=== PATIENT | male | born 1960 | race Caucasian/White ===

== ENCOUNTER 2017-12-17 20:59 | Emergency (ER) | payer BC ==
[~2017-12-17] VITALS: Ht 167.6 cm; Wt 85.0 kg
[2017-12-17 21:05] VITALS: TEMP 36.6; Ht 167.6 cm; Wt 85.0 kg
[2017-12-17] MEDS ORDERED: ALBUT/IPRATROP 3MG/0.5MG NEB 3 ML VIAL INH STA (21:30)
[2017-12-17] MEDS ORDERED: DEXAMETHASONE **PF** INJ 10 MG/ML VIAL IV ONE (21:30)
[2017-12-17 21:49] VITALS: O2SAT 93
[2017-12-17 22:20] LABS: BASO % 0.2 %; BASO ABS # 0.03 K/uL (0-0.2); EOS % 8.8 %; EOS ABS # 1.06 K/uL (0-0.5); HEMATOCRIT 40.7 % (42-52); IG# 0.06 K/uL (0.00-0.02); LYMPH % 21.2 %; LYMPH ABS # 2.56 K/uL (1.2-3.4); MEAN CORPUSCULAR HEMOGLOBIN 29.2 pg (25-34); MEAN CORPUSCULAR HGB CONC 34.4 g/dl (32-36); MEAN PLATELET VOLUME 9.6 fL (7.4-10.4); MONO % 8.3 %; NEUT ABS # 7.39 K/uL (1.4-6.5); PLATELET COUNT 274 K/uL (130-400); RED CELL DISTRIBUTION WIDTH CV 13.4 % (11.5-14.5); RED CELL DISTRIBUTION WIDTH SD 41.4 fL (36.4-46.3)
[2017-12-17 22:37] LABS: ALBUMIN 3.5 gm/dl (3.4-5.0); AST/SGOT 19 U/L (15-37); BLOOD UREA NITROGEN 15 mg/dl (7-18); CALCIUM 8.4 mg/dl (8.5-10.1); CARBON DIOXIDE 28 mmol/L (21-32); CREATININE 0.89 mg/dl (0.60-1.40); GLUCOSE 98 mg/dl (70-99); POTASSIUM 3.9 mmol/L (3.5-5.1); SODIUM 140 mmol/L (136-145)
[2017-12-17 22:40] LABS: ALKALINE PHOSPHATASE 74 U/L (45-117); ALT/SGPT 40 U/L (12-78); TOTAL PROTEIN 7.3 gm/dl (6.4-8.2)
--- NOTE | 2017-12-17 22:54 | DIAGNOSTIC IMAGING REPORT ---
CHEST ONE VIEW PORTABLE HISTORY: 57 years-old Male CHEST PAIN acute atypical chest pain COMPARISON: None available TECHNIQUE: Portable AP view of the chest FINDINGS: Cardiomediastinal and hilar silhouettes are within normal limits. There is no pneumothorax, pleural effusion, focal airspace consolidation or overt pulmonary edema. Degenerative changes of the shoulders and spine. IMPRESSION: No acute process. The above report was generated using voice recognition software. It may contain grammatical, syntax or spelling errors. Electronically signed by: Cesar Patel M.D. 12/17/2017 10:52 PM Dictated Date/Time: 12/17/2017 10:52 PM
[2017-12-17] MEDS ORDERED: OPTIRAY 320 IV PRN (23:30)
[2017-12-18] MEDS ORDERED: ALBUT/IPRATROP 3MG/0.5MG NEB 3 ML VIAL INH STA (00:22)
[2017-12-18] MEDS ORDERED: ALBINS/ INH (00:38)
[2017-12-18] MEDS ORDERED: PRED50TA PO (00:38)
--- NOTE | 2017-12-18 00:39 | EMERGENCY ROOM VISIT NOTE ---
History First contact with patient: 21:22 Chief Complaint: RESPIRATORY PROBLEMS Stated Complaint: RESPIRATORY ISSUES,HAVING TROUBLE BREATHING History of Present Illness The patient is a 57 year old male who presents to the Emergency Room with complaints of cough, congestion, wheezing, shortness of breath and chest pain for the past week who has had problems with breathing for the past several months. 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 They did not do an x-ray. Patient states this week he seen his family care doctor twice. He has been on steroids and a Z-Gavin. Patient denies fevers, productive cough, abdominal pain, leg pain or swelling, tobacco abuse, recent travel, night sweats, weight loss, history of DVT or PE or heart disease. No family history of blood clots or heart disease. 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 Review of Systems An 10 system review of systems was completed with positives and pertinent negatives listed in the HPI. Past Medical/Surgical History Asthma Social History Smoking Status: Never Smoker Alcohol Use: occasionally Drug Use: none Marital Status: Housing Status: lives with family Occupation Status: employed Current/Historical Medications No Active Prescriptions or Reported Meds Physical Exam Vital Signs Date Time Temp Pulse Resp B/P (MAP) Pulse Ox O2 Delivery O2 Flow Rate FiO2 12/17/17 23:19 66 24 131/80 93 Room Air 12/17/17 22:53 67 20 92 Room Air 12/17/17 22:44 65 12/17/17 22:01 62 12/17/17 21:49 93 Room Air 12/17/17 21:49 93 Room Air 12/17/17 21:05 36.6 69 20 155/84 93 Room Air Physical Exam PHYSICAL EXAM: Vital Signs: Reviewed Nurse's notes. Oxygen saturation was 93% on room air. GENERAL: Pleasant male, Alert, oriented and coherent. The patient is able to speak in complete sentences. NECK: Supple, non-tender. CHEST: Symmetrical expansion. no retractions no accessory muscle use. HEART: Regular rate and normal heart sounds, no murmur, gallop or rub. LUNGS: Breath sounds equal but significantly diminished in intensity on both sides. Bilateral wheezes heard but no rales or pleuritic rub. SKIN: The skin was without rashes, erythema, edema, or bruising. There is no tenting of the skin. Capillary reflex less than 2 seconds. HEAD: Normocephalic atraumatic. EARS: External auditory canals clear, tympanic membranes pearly gates without erythema or effusion bilaterally. EYES: Pupils equal round and reactive to light and accommodation. Conjunctivae without injection, sclerae without icterus. Extraocular movements intact. NOSE: Patent, turbinates without inflammation or discharge. No sinus tenderness. MOUTH: Mucous membranes moist. Pharynx without erythema or exudate. Uvula midline. Airway patent. Tongue does not deviate. ABDOMEN: Positive bowel sounds x 4. Normal tympanic percussion. Soft, nontender, without masses or organomegaly. House sign negative. No guarding or rebound tenderness. MUSCULOSKELETAL: No muscle atrophy, erythema, or edema noted. NEURO: Patient was alert and oriented to person place and time. Normal sensation to light and sharp touch. No focal neurological deficits. Medical Decision & Procedures Laboratory Results 12/17/17 21:15 Red Blood Count 4.79, Mean Corpuscular Volume 85.0, Mean Corpuscular Hemoglobin 29.2, Mean Corpuscular Hemoglobin Concent 34.4, Mean Platelet Volume 9.6, Neutrophils (%) (Auto) 61.0, Lymphocytes (%) (Auto) 21.2, Monocytes (%) (Auto) 8.3, Eosinophils (%) (Auto) 8.8, Basophils (%) (Auto) 0.2, Neutrophils # (Auto) 7.39, Lymphocytes # (Auto) 2.56, Monocytes # (Auto) 1.00, Eosinophils # (Auto) 1.06, Basophils # (Auto) 0.03 12/17/17 21:15 Test 12/17/17 21:15 12/17/17 21:39 White Blood Count 12.10 K/uL (4.8-10.8) Red Blood Count 4.79 M/uL (4.7-6.1) Hemoglobin 14.0 g/dL (14.0-18.0) Hematocrit 40.7 % (42-52) Mean Corpuscular Volume 85.0 fL (80-100) Mean Corpuscular Hemoglobin 29.2 pg (25-34) Mean Corpuscular Hemoglobin Concent 34.4 g/dl (32-36) Platelet Count 274 K/uL (130-400) Mean Platelet Volume 9.6 fL (7.4-10.4) Neutrophils (%) (Auto) 61.0 % Lymphocytes (%) (Auto) 21.2 % Monocytes (%) (Auto) 8.3 % Eosinophils (%) (Auto) 8.8 % Basophils (%) (Auto) 0.2 % Neutrophils # (Auto) 7.39 K/uL (1.4-6.5) Lymphocytes # (Auto) 2.56 K/uL (1.2-3.4) Monocytes # (Auto) 1.00 K/uL (0.11-0.59) Eosinophils # (Auto) 1.06 K/uL (0-0.5) Basophils # (Auto) 0.03 K/uL (0-0.2) RDW Standard Deviation 41.4 fL (36.4-46.3) RDW Coefficient of Variation 13.4 % (11.5-14.5) Immature Granulocyte % (Auto) 0.5 % Immature Granulocyte # (Auto) 0.06 K/uL (0.00-0.02) D-Dimer 490 ug/L FEU (0-500) Anion Gap 5.0 mmol/L (3-11) Est Creatinine Clear Calc Drug Dose 92.5 ml/min Estimated GFR () 109.2 Estimated GFR (Non- 94.3 BUN/Creatinine Ratio 16.3 (10-20) Calcium Level 8.4 mg/dl (8.5-10.1) Magnesium Level 2.0 mg/dl (1.8-2.4) Total Bilirubin 0.4 mg/dl (0.2-1) Direct Bilirubin < 0.1 mg/dl (0-0.2) Aspartate Amino Transf (AST/SGOT) 19 U/L (15-37) Alanine Aminotransferase (ALT/SGPT) 40 U/L (12-78) Alkaline Phosphatase 74 U/L (45-117) Troponin I < 0.015 ng/ml (0-0.045) Total Protein 7.3 gm/dl (6.4-8.2) Albumin 3.5 gm/dl (3.4-5.0) Thyroid Stimulating Hormone (TSH) 4.650 uIu/ml (0.300-4.500) Bedside Troponin I < 0.030 ng/ml (0-0.045) Medications Administered Medications (Trade) Dose Ordered Sig/Deirdre Route Start Time Stop Time Status Last Admin Dose Admin Dexamethasone Sodium Phosphate (Dexamethasone Inj Pf) 10 mg NOW ONCE IV 12/17/17 21:30 12/17/17 21:33 DC 12/17/17 21:48 10 MG Albuterol/ Ipratropium (Duoneb) 3 ml NOW STAT INH 12/17/17 21:30 12/17/17 21:33 DC 12/17/17 21:48 3 ML ED Course Prior records/ancillary studies reviewed. Triage Nursing notes reviewed. Additional history obtained from the family. The patient's history was concerning for respiratory difficulties. Differential diagnosis: Etiologies such as infections, reactive airway disease, pneumonia, pneumothorax , COPD, CHF, cardiac ischemia, pulmonary embolism, musculoskeletal, gastrointestinal, as well as others were entertained. Physical examination: As above. ER treatment provided: Nebulizer, Decadron On reassessment the patient felt better. Diagnostic interpretation by me: The electrocardiogram was negative for acute ischemic. Low voltage, no acute ST -T wave changes, rate of 62. Impression normal sinus rhythm with low voltage interpreted by myself. The labs revealed negative troponin. Stable H&H. Imaging studies: Chest x-ray as above. CTA CHEST: No pulmonary embolus identified. No aortic aneurysm or dissection. No acute pulmonary parenchymal abnormality identified. Question mild bronchial wall thickening which may represent bronchitis. Nonspecific mildly prominent mediastinal and hilar lymph nodes. Cystic structure along the posterior right hepatic lobe is only partially visualized on this exam. This may be represent a renal cyst or hepatic cyst. Radiologist: Clarisse Krishna M.D. HEART SCORE: Hx: high/mod/low suspicion: 0 ECG: ST depression/nonspecific changes/normal: 0 Age: Greater than 65/45-64/less than 45: 1 Risk factors: (Hypertension, hyperlipidemia, diabetes, coronary disease, tobacco use, cocaine use): 0 Troponin: Greater than 2 times normal limits/1-2 times normal limits/normal: 0 Total: 1 Wells Score Symptoms of DVT 3pt: 0 Alternative diagnoses better explains illness 3pts: 0 Tachycardia greater than 100 1.5 pts 0 Immobilization greater than 3 days or surgery in the previous 4 weeks 1.5 pts: 0 Prior history of DVT or PE 1.5 pts: 0 Presence of hemoptysis 1pt: 0 Presence of malignancy 1pt: 0 (Score greater than 6 is high probability, score 2-6 moderate probability, score less than 2 low probability) Total: 0 This appears to be consistent with bronchitis with wheezing. Patient has been seen multiple times this past 2 weeks with worsening symptoms. Imaging was ordered for his ongoing breathing problems that she has bronchitis with reactive lymph nodes. Patient was recently diagnosed with reactive airway disease. He has already been on steroids and antibiotics. He has not seen a dairy chemist. Case management will help facilitate follow-up pulmonology for his ongoing worsening breathing problems. Patient states he might of had a distant history of TB but is unsure. He was treated for TB and 83. He states he had a positive PPD but is unsure. He was in the them. His heart score was low. He had low voltage on EKG without acute changes for cardiac ischemia. His pulse ox was stable. By the evaluation outlined above emergent etiologies such as CHF, cardiac ischemia, pulmonary embolism, pneumonia, pneumothorax, musculoskeletal, serious bacterial infections, as well as others were deemed relatively unlikely. Patient was not hypoxic. He had great improvement after being medicated as above. He asked about a nebulizer and was informed to see his family care doctor for prescription for a nebulizer. The pt informed about the findings as listed above. All questions were answered and pleased with the treatment. Return instructions were outlined and the patient was discharged in stable condition. Outpatient prescription management: prednisone Referral: The patient was referred back to their primary care physician for follow-up in 2 to 3 days for a recheck of the current condition. Case reviewed with my attending The chart was completed utilizing [employer] Speech voice recognition software. Grammatical errors, random word insertions, pronoun errors, and incomplete sentences are an occassional consequence of this system due to software limitations, ambient noise, and hardware issues. Any formal questions or concerns about the content, text, or information contained within the body of this dictation should be directly addressed to the physician assistant executive housekeeper for clarification. Medical Decision As above Medication Reconcilliation Current Medication List: was personally reviewed by me Blood Pressure Screening Patient's blood pressure: Normal blood pressure Impression Primary Impression: Wheezy bronchitis Departure Information Dispostion Home / Self-Care Condition GOOD Prescriptions Prednisone (Prednisone) 50 Mg Tab 50 MG PO DAILY for 4 Days, #4 TAB Prov: Christa Chapman .ZEINAB 12/18/17 Albuterol Sulf (PROVENTIL 0.083% 2.5MG/3ML) 2.5 Mg/3 Ml Nebu 2.5 MG INH QID, #100 EA Prov: Christa Chapman .ZEINAB 12/18/17 Referrals Nelia Dickey M.D. (MEDICAL) (PCP) Patient Instructions My [facility] Additional Instructions Albuterol Inhaler: Take 2 puffs four times daily for five days, then as needed. Or Albuterol nebulizer every 4 hours as needed. Prednisone 50mg: Once daily until the prescription is finished. It is best to take this earlier in the day as some patients note occasional difficulty falling asleep when taken in the late evening. Acetaminophen(Tylenol) may be used for fever or pain. Use 1000mg every six hours as needed. Avoid using more than 3000mg in a 24 hour period. (AND/OR) Ibuprofen(Motrin, Advil) may be used for fever or pain. Use 600mg every six hours as needed. Take with food. Avoid using more than 2400mg in a 24 hour period. Do not use 2400mg per day for more than three consecutive days without physician direction. Prolonged inappropriate use can lead to stomach upset or ulcers. Rest and drink plenty of fluids. Avoid smoke/smoking, fumes, dust, or any triggers in the past that may have affected your breathing. Continue current medications. Return to the ER for chest pain, difficulty breathing, fevers, vomiting, worsening of your condition, or as needed. Follow up with your primary physician this week for a recheck of your current condition. Case management will help facilitate follow-up pulmonology next week. If you do not hear by case management by noon on Wednesday, then call the ER and asked to speak with case management.
[2017-12-18 00:56] VITALS: BP 133/72; PULSE 65; O2SAT 92
--- NOTE | 2017-12-18 05:31 | DIAGNOSTIC IMAGING REPORT ---
(CHEST FOR PE) ANGIO WITH CLINICAL HISTORY: 57 years-old Male presenting with ^CP/SOB, getting worse, hx poss TB in 1983. TECHNIQUE: Multidetector CT angiography of the chest was performed after administration of intravenous contrast. 3-D volumetric and/or maximum intensity projection (MIP) images were subsequently reconstructed for review. IV contrast: 94 mL of Optiray 320. A dose lowering technique was used consistent with the principles of ALARA (as low as reasonably achievable). COMPARISON: None. CT DOSE (mGy.cm): The estimated cumulative dose is 406.00 mGy.cm. FINDINGS: Web Content Developer topogram: Unremarkable. Pulmonary vasculature: The study is adequate for assessment of the pulmonary vascular tree. No filling defect within the pulmonary arteries to suggest embolus. Main pulmonary artery is not enlarged. No flattening of the interventricular septum. No intracardiac filling defect. Reflux of contrast into the intrahepatic IVC. Remaining chest: On soft tissue windows, normal thyroid and thoracic inlet. No axillary, supraclavicular, hilar, or mediastinal lymphadenopathy. Atherosclerosis of the aorta. Normal heart size. Coronary artery calcification. No pericardial or pleural effusion. Partially visualized low-density well-defined cystic-appearing structure along the posterior right hepatic lobe may represent hepatic or renal cyst. On lung windows, no focal infiltrate or nodule. Bronchial wall thickening evident with scattered subsegmental bronchial debris or mucus plugging. Central airways remain patent. On bone windows, normal osseous structures. IMPRESSION: 1. No evidence of pulmonary embolus. 2. Bronchial wall thickening and scattered subsegmental bronchial debris or mucus plugging could indicate bronchitis. No focal infiltrate to suggest pneumonia. Electronically signed by: Jose Chahal M.D. 12/18/2017 5:30 AM Dictated Date/Time: 12/18/2017 5:24 AM
== END 2017-12-18 00:56 | disposition home or self-care (01) ==
LOC: C.EDB 21:01
DX: J40 Bronchitis, not specified as acute or chronic (principal); R06.2 Wheezing

== ENCOUNTER → 2018-03-07 | Outpatient (CLI) | payer BC ==
[~2018-03-07] MED LIST: ALBINS/ INH; BUDE180I INH; CLR10 PO; MONT1TAB3 PO; PRED10TA PO; RANI150T3 PO
[2018-03-07 17:10] LABS: BASO % 0.3 %; BASO ABS # 0.02 K/uL (0-0.2); EOS % 1.8 %; EOS ABS # 0.14 K/uL (0-0.5); HEMOGLOBIN 13.4 g/dL (14.0-18.0); IG# 0.03 K/uL (0.00-0.02); LYMPH % 28.9 %; LYMPH ABS # 2.19 K/uL (1.2-3.4); MEAN CELL VOLUME 85.8 fL (80-100); MEAN CORPUSCULAR HEMOGLOBIN 28.8 pg (25-34); MEAN CORPUSCULAR HGB CONC 33.5 g/dl (32-36); MEAN PLATELET VOLUME 10.6 fL (7.4-10.4); MONO ABS # 0.53 K/uL (0.11-0.59); NEUT % 61.6 %; NEUT ABS # 4.68 K/uL (1.4-6.5); PLATELET COUNT 279 K/uL (130-400); RED CELL DISTRIBUTION WIDTH CV 13.9 % (11.5-14.5); RED CELL DISTRIBUTION WIDTH SD 43.3 fL (36.4-46.3); WHITE BLOOD COUNT 7.59 K/uL (4.8-10.8)
== END | disposition home or self-care (01) ==
LOC: C.LAB1850 16:08
PROVIDERS: ATTEND Internal Medicine Pulmonary Disease
DX: J45.909 Unspecified asthma, uncomplicated (principal)

== ENCOUNTER 2022-02-06 06:49 | Observation (INO) ==
--- NOTE | 2022-01-16 15:21 | PAT Medication Instructions ---
Medication Instructions Date of Service January 16, 2022 Home Medications cholecalciferol (vitamin D3) 25 mcg (1,000 unit) tablet (Vitamin D3) 1,000 unit PO QAM meloxicam 15 mg tablet 7.5 - 15 mg PO QAM PRN ASK your surgeon for instructions meloxicam 15 mg tablet 7.5 - 15 mg PO QAM PRN DO NOT take the morning of surgery cholecalciferol (vitamin D3) 25 mcg (1,000 unit) tablet (Vitamin D3) 1,000 unit PO QAM Other Notes NOTHING TO EAT OR DRINK AFTER MIDNIGHT. If you have any questions please call us at [phone] or [phone] or [phone] or [phone]
--- NOTE | 2022-01-20 12:18 | Anesthesiology Consultation ---
Date of Service January 20, 2022 Assessment & Plan (1) Encounter for pre-operative examination: Chart Review Chart Review: Acceptable Risk for Surgery (pending preop Covid testing results ) and Patient seen in Pre Admission Testing Per PAT appt on 01/20/22, patient denies any recent travel or large group activities. No known Covid positive exposures or Covid related symptoms. No known Covid infection in the past 90 days. Pt is vaccinated for Covid. Preop Covid testing scheduled 02/04/22 = will await results. Educated on importance of self quarantining, social distancing and wearing mask in public for the patient one week prior to surgery and after Covid testing done Last seen by pulm 07/30/21= seen for one year follow up. PFTs done yesterday- no significant obstructive or restrictive disease. Does have severely reduced ERV but denies any symptoms. Hx of bronchoscopy in 2018 revealing mucoid impaction. Pt denies any pulmonary issues or exacerbations of asthma. Asthma- well controlled. No inhalers needed. Eosinophilia - resolved. Pt doing quite well. Will repeat PFTs in one year. Can follow up with PCP and pulm PRN Left Shoulder Arthroscopy, Rotator Cuff Repair, Acromioplasty 10/03/20= Done under [place] with LMA #5. History Surgery Operation Date: 02/06/22 08:10 Proposed Procedures p Left Anterior Total Hip Arthroplasty - Cali Jose, DO Height/Weight Height: 5 ft 7 in Weight: 86.4 kg Allergies Allergy/AdvReac Type Severity Reaction Status Date / Time fluticasone Allergy Severe Chest Pain Verified 01/15/22 12:26 [From Advair Diskus] salmeterol Allergy Severe Chest Pain Verified 01/15/22 12:26 [From Advair Diskus] Sulfa (Sulfonamide Allergy Mild RASH/PRURIT Verified 01/15/22 12:26 Antibiotics) IS Medications Home Medications Medication Instructions Recorded Confirmed Last Taken cholecalciferol (vitamin D3) 25 1,000 unit PO QAM 06/21/20 01/15/22 10/02/20 mcg (1,000 unit) tablet (Vitamin D3) meloxicam 15 mg tablet 7.5 - 15 mg PO QAM PRN 01/15/22 01/15/22 Unknown Past Medical History Medical History Asthma No limitations/breathing issues Bradycardia ASYMPTOMATIC-NO CARDIOLOGY Eosinophilic asthma GERD (gastroesophageal reflux disease) ON OCC Takes OTC medication PRN- relieves symptoms History of bronchitis JUL 2017 STARTED HAVING RESPIRATORY PROBLEMS...PFTs and labs were c/w moderate to severe obstruction. Also had eosinophilia. Elective bronch 01/2018. He had widespread mucous plugging and seemingly purulent material suctioned from both lungs; was hypoxic for a period following the bronchoscopy and admitted for observation overnight with IV steroids and bronchodilators. Also developed a petechial rash on his face and scalp directly following the procedure, which had resolved by discharge. Cultures from his bronchoscopy remained negative for any specific pathogen. At discharge, completed a slow prednisone taper for his suspected asthma. PT REPORTS SYMPTOMS HAVE RESOLVED OVERALL. Exercise / Class Metabolic Activity II 4-5 Yardwork/Stairs/Walk up hill (one flight of stairs - no chest pain or SOB ) Past Family History Family History Other No family history of adverse response to anesthesia Past Surgical History Surgical History H/O shoulder surgery RT/LT History of bronchoscopy History of colonoscopy History of right inguinal hernia repair 10/25/2018 History of tonsillectomy Hx of LASIK Past Anesthesia History No Hx of Anesthesia Complications and No Family Hx of Anesthesia Complications History of PONV No Hx of PONV and No Hx of Motion Sickness Social History Smoking Status: Never smoker Do You Dip or Chew Tobacco: No Hx Alcohol Use: Yes Alcohol type: beer alcohol intake frequency: other Alcohol Intake Frequency Comment: RARELY Hx Substance Use: No substance use type: does not use Review of Systems Patient denies chest pain, shortness of breath, dyspnea on exertion, cough, wheezing, palpitations. No hx of seizures, stroke, HI, apnea/snoring. No hx of blood clots or blood transfusions Physical Exam Vital Signs VITALS BP 153/80 P 49 (chronic bradycardia per patient- denies dizziness, lightheadedness or syncope) TEMP 98.2 SP02 98% RESP 16 Constitutional no acute distress ENMT Mouth: no TMJ clicking Thyromental Distance: > or= 3.5 Finger Breadths (3.5) Mallampati Class: I Neck + short neck (mild ) and + limited neck extension (mild ) Respiratory normal respiratory effort; no respiratory distress Auscultation: lungs clear to auscultation bilaterally; no wheezes Cardiovascular Rate/Rhythm: regular rate and regular rhythm Heart Sounds: no murmur Vessels: no carotid bruit Musculoskeletal Spine: no pain with cervical ROM Extremities: extremities normal to inspection Psychiatric Orientation: alert Lab Results Anesthesia Preop Results Results Anesthesia Widget: WBC 5.82 K/uL (4.8-10.8) 01/20/22 Hgb 13.4 g/dL (14.0-18.0) L 01/20/22 Hct 40.1 % (42-52) L 01/20/22 Plt 243 K/uL (130-400) 01/20/22 Na 140 mmol/L (136-145) 01/20/22 K 4.4 mmol/L (3.5-5.1) 01/20/22 Cl 106 mmol/L (98-107) 01/20/22 CO2 29 mmol/L (21-32) 01/20/22 BUN 16 mg/dl (6-23) 01/20/22 Creat 0.90 mg/dl (0.6-1.4) 01/20/22 Glucose Level 118 mg/dl (70-99(Fasting)) H 01/20/22 PT 10.3 Seconds (9.0-12.0) 01/20/22 PTT 27.5 Seconds (21.0-31.0) 01/20/22 INR 1.0 (0.9-1.1) 01/20/22 Blood Type O Positive 01/20/22 Antibody Screen NEGATIVE 01/20/22 Testing Electrocardiogram Date: 01/20/22 Findings: + SB @ (46bpm ) Cannot rule out inferior infarct (cited on or before Jun 28, 2020) When compared to EKG from Jun 28, 2020- no significant morales was found per cardio Chest X-Ray Date: 01/20/22 Findings: + NAD Pulmonary Function Test Date: 07/29/21 Adequate test. No obstruction. Insignificant bronchodilator response. Severe decreased ERV. Normal TLL. Mild decrease in DLCO which correlates for [facility]. Decreased FVC by 350ml. Decresaed FEV1 by 360ml. Increased weight by 8lbs compared to 07/2020. Suggest clinical correlation.
[~2022-02-06 06:49] MED LIST changes: +ACETAMINOPHEN 500 MG TAB PO SCH; -ALBINS/ INH; -BUDE180I INH; +BUPIVACAINE 0.5 % 5 MG/1 ML PF 10ML VIAL ONE; -CLR10 PO; +GABAPENTIN 600 MG DOSE PO SCH; +Ketorolac (*for OR use only*) 30 MG, dexAMETHasone 4 MG, KETAMINE HCL (**OR use only) 1... INFIL SCH; +LR 500ML BOLUS, THEN 15ML/HR IV SCH; +LR 60ML/HR IV SCH; -MONT1TAB3 PO; -PRED10TA PO; -RANI150T3 PO; +TRANEXAMIC ACID 1,000 MG **IV Intra-op IV SCH; +TRANEXAMIC ACID 1,000 MG **IV Pre-op IV SCH; +ceFAZolin 2000MG 2,000 MG/15 ML SYR IV SCH
[2022-02-06] MEDS ORDERED: fentaNYL citrate 100 MCG/2 ML VIAL ONE (08:05)
[2022-02-06] MEDS ORDERED: MIDAZOLAM HCL 1 MG/ML 2ML VIAL ONE ×2 (08:05)
--- NOTE | 2022-02-06 08:05 | History & Physical Bridge Note ---
Date of Service February 06, 2022 History & Physical Bridge Note I have examined the patient, reviewed the History & Physical and in the interval since the performance of the History & Physical I have noted the following changes of clinical significance: no changes noted
[2022-02-06] MEDS ORDERED: PROPOFOL IV EMULSION 10 MG/ML 20 ML VIAL IV ONE (08:31)
[2022-02-06] MEDS ORDERED: ORTHO JOINT ANESTHETIC ONE (09:02)
[2022-02-06] MEDS ORDERED: FLUMAZENIL 0.1 MG/1 ML 10 ML VIAL IV PRN (09:09)
[2022-02-06] MEDS ORDERED: ONDANSETRON INJ 2 MG/ML 2 ML VIAL IV PRN ×2 (09:09→11:44)
[2022-02-06] MEDS ORDERED: PROMETHAZINE HCL 12.5 MG in SODIUM CHLORIDE 0.9% 50 ML IV PRN (09:09)
[2022-02-06] MEDS ORDERED: ATROPINE SULFATE 0.1 MG/ML 10ML SYR IV PRN (09:09)
[2022-02-06] MEDS ORDERED: HYDROmorphone INJ 1 MG/ML SYRINGE IV PRN (09:09)
[2022-02-06] MEDS ORDERED: fentaNYL citrate 100 MCG/2 ML VIAL IV PRN (09:09)
[2022-02-06] MEDS ORDERED: NALOXONE HCL 0.4 MG/1 ML VIAL/CARP IV PRN ×2 (09:09→11:44)
[2022-02-06] MEDS ORDERED: LIDOCAINE 2% 2 ML VIAL/AMP(20MG/ML) INFIL ONE (09:27)
[2022-02-06] MEDS ORDERED: ePHEDrine sulfate 50 MG/ML AMP ONE (10:11)
--- NOTE | 2022-02-06 10:30 | Operative Report ---
PG Post Operative Report Pre & Post Diagnosis Operation Date: 02/06/22 09:20 Pre-Op Diagnosis: Left hip degenerative joint disease Post-Op Diagnosis: Left hip degenerative joint disease I identified the patient and participated in the time-out.: Yes Procedure Operation Date: 02/06/22 09:20 Actual Procedures p Left Anterior Total Hip Arthroplasty(Left) - Cali Jose DO Surgeon Cali Jose DO Lumber Carrier Cali Ledbetter PAC Estimated Blood Loss 250 Findings Consistent with Post-Op Diagnosis Specimens Left femoral head Complications none Disposition Disposition: Recovery Room Description of Procedure Implants used I used a ZimmerBiomet total hip arthroplasty system with a size 5 high offset Avenir Complete stem, a 54mm G7 cup with a 25mm screw, an E1 polyethylene liner, a 40mm ceramic head with a 0 neck. Marco arrived at the hospital for the above procedure. He was seen in the preoperative holding area and the operative extremity was identified and signed. He was given a spinal anesthetic, a preoperative antibiotic, and TXA. He was then taken back to the operating room and laid on the table in the supine position. He was given basic sedation. The operative leg was secured to a Puristst leg positioner. The hip was then prepped and draped in sterile fashion. A timeout was done and the patient and the operative extremity was properly identified. An anterior approach was used. Dissection was taken down through the fascia and the tensor muscle belly was retracted laterally and the rectus was retracted medially. The circumflex vessels were identified and ligated. The capsule was then incised and tagged for later repair. The femoral neck was then cut and the femoral head was removed. The acetabulum was exposed. Time was spent doing a complete circumferential labral release. Sequential reaming of the acetabulum up to a size 53 reamer was done. Final reamings were done under fluoroscopy to ensure appropriate version. A Biomet 54mm G7 cup was then impacted into place. A single 25 mm screw was placed. The E1 polyethylene liner was then snapped into place. Surrounding soft tissues were then injected with 100 cc of an orthopedic pain control cocktail. The proximal femur was then exposed. Sequential broaching up to a size 5 broach was done. Off that broach a size 40 head with a 0 neck was trialed. The hip was reduced and fluoroscopic images showed anatomic alignment of the implants in acceptable length. The broach was removed. The final size 5 high offset Avenir Complete stem was then impacted into place. A ceramic 40mm head with a 0 neck was then impacted onto the stem and the hip was reduced. Final fluoroscopic images showed anatomic alignment of the hip. The capsule was then closed with #1 Vicryl suture. A dilute betadyne lavage was then done for 3 minutes. The joint was then irrigated with normal saline solution. The fascia was closed with #1 PDS suture. Skin was closed with 2-0 Vicryl, tom, and a Silverlon dressing. He was then transferred to a hospital bed and taken to the post anesthesia care unit in stable condition. He tolerated the procedure well. Cali Ledbetter PA-C, was present for the entire procedure. He was critical for patient positioning, prepping, draping, retraction exposure, wound closure and application of sterile dressing. I attest to the content of the Intraoperative Record and any orders documented therein. Any exceptions are noted below.
--- NOTE | 2022-02-06 11:08 | Fluoroscopy Report ---
FL hip LT 1V CLINICAL HISTORY: LEFT ANTERIOR VINAY COMPARISON STUDY: None FLUOROSCOPY TIME: 24 seconds. FLUOROSCOPIC IMAGES: 2 FINDINGS: 2 fluoroscopic spot images were obtained status post total hip replacement on the left. IMPRESSION: Status post total hip replacement. ACT 112: Negative or not required by law. Electronically signed by: Farhan Pereira M.D. 02/06/2022 11:07 AM
--- NOTE | 2022-02-06 11:28 | Anesthesiology Progress Note ---
Date of Service February 06, 2022 Anesthesia Post Procedure Vital Signs Vital Signs: Temp Pulse Pulse Resp BP Pulse Ox 02/06/22 11:20 46 L 13 122/64 100 02/06/22 11:10 46 L 14 110/66 100 02/06/22 11:00 44 L 12 113/63 100 02/06/22 10:52 36.4 C L 50 L 12 102/64 100 02/06/22 07:06 36.7 C 54 L 20 150/75 H 98 Transfer of Care Handoff Completed per policy Notes Mental Status: alert / awake / arousable Patient Amnestic to Procedure: Yes Nausea / Vomiting: adequately controlled Pain: adequately controlled Airway Patency, RR, SpO2: stable & adequate BP & HR: stable & adequate Hydration State: stable & adequate Neuraxial Anesthesia: was administered and sensory block is resolving Anesthetic Complications: no major complications apparent
--- NOTE | 2022-02-06 11:38 | XRay Report ---
XR hip 1V LT w pelvis HISTORY: 61 years-old Male IN PACU - A/P PELVIS and LATERAL HIP left hip total joint arthroplasty COMPARISON: Fluoroscopic images of the left hip of same day TECHNIQUE: AP view of the pelvis with crosstable lateral view of the left hip FINDINGS: Moderate right hip osteoarthritis. Left hip total joint arthroplasty demonstrates satisfactory alignm ent. Lateral skin tom are noted along with expected postoperative soft tissue swelling and deep t issue air. IMPRESSION: Unremarkable appearance of the left hip total joint arthroplasty. ACT 112: Negative or not required by law. The above report was generated using voice recognition software. It may contain grammatical, syntax o r spelling errors. Electronically signed by: Dario Patel M.D. 02/06/2022 11:37 AM
[2022-02-06] MEDS ORDERED: HYDROmorphone INJ 0.5 MG/0.5 ML SYR IV PRN (11:44)
[2022-02-06] MEDS ORDERED: MAGNESIUM HYDROXIDE SUSP 30 ML UDC PO PRN (11:44)
[2022-02-06] MEDS ORDERED: METOCLOPRAMIDE HCL INJ 5 MG/ML 2 ML VIAL IV PRN (11:44)
[2022-02-06] MEDS ORDERED: bisacodyL 10 MG SUPP PR PRN (11:44)
[2022-02-06] MEDS: SODIUM CHLORIDE 0.9% 1000ML 1,000 ML IV SCH (12:30)
[2022-02-06] MEDS: KETOROLAC 30 MG/ML VIAL IV SCH ×2 (12:32→16:50)
[2022-02-06] MEDS: ACETAMINOPHEN 500 MG TAB PO SCH ×2 (13:55→21:14)
[2022-02-06] MEDS: ceFAZolin 2000MG 2,000 MG/15 ML SYR IV SCH (16:50)
[2022-02-06] MEDS: oxyCODONE HCL IR 5 MG TAB (IMMEDIATE RELEASE) PO PRN (18:27)
[2022-02-06] MEDS ORDERED: SENNA 8.6 MG TAB PO SCH (21:00)
[2022-02-06] MEDS: DOCUSATE SODIUM 100 MG CAP PO SCH (21:13)
[2022-02-06] MEDS: ASPIRIN 81 MG ECTAB PO SCH (21:13)
[2022-02-07] MEDS: ceFAZolin 2000MG 2,000 MG/15 ML SYR IV SCH (00:30)
[2022-02-07] MEDS: KETOROLAC 30 MG/ML VIAL IV SCH ×2 (00:31→06:27)
[2022-02-07] MEDS: SODIUM CHLORIDE 0.9% 1000ML 1,000 ML IV SCH (00:57)
[2022-02-07] MEDS: ACETAMINOPHEN 500 MG TAB PO SCH (06:27)
--- NOTE | 2022-02-07 07:04 | Orthopedic Progress Note ---
Date of Service February 07, 2022 Assessment & Plan (1) Status post left hip replacement: Overall he is doing very well. He is not having much pain in the left hip. He will be seen by physical therapy today for ambulation and range of motion exercises. He is on aspirin for DVT prophylaxis. He can be discharged home later today. He will follow-up with orthopedics in 2 weeks. Nitin Lara was seen and examined at bedside this morning. Overall is doing very well. Is not having much pain in the left hip. He has been up and ambulating to the bathroom. He has no complaints. Review of Systems All systems reviewed & are unremarkable except as noted in HPI & below. Physical Exam On physical examination of the left hip, the dressing is clean and dry. His leg lengths are equal. He has active dorsiflexion plantarflexion of the left ankle.. Results & Data Results & Data Laboratory Results . Diagnostic Findings Postoperative x-rays of the left hip show the prosthesis to be in anatomic alignment without any evidence of fracture, desiccation, or loosening PG Care Time/CCT Total # of Minutes Spent Total Time Spent with Patient: Total time spent is greater than 50% in coordination of care (as documented) at patient's floor/unit and/or counseling patient: Coding Level of Care Code 92267 Post Operative Follow-Up Diagnoses Status post left hip replacement Z96.642
--- NOTE | 2022-02-07 07:05 | Discharge Summary ---
Date of Service February 07, 2022 Principal Diagnosis Same as "Discharge Diagnosis" noted below under Discharge Instructions. Discharge Exam On physical examination of the left hip, the dressing is clean and dry. His leg lengths are equal. He has active dorsiflexion plantarflexion of the left ankle.. Discharge Data Procedures Performed Operation Date: 02/06/22 09:20 Actual Procedures p Left Anterior Total Hip Arthroplasty(Left) - Cali Jose DO Ordered Studies 02/06/22 09:20 FL hip LT 1V Routine Hospital Course (1) Status post left hip replacement: On February 06, 2022 Marco arrived to [facility] and underwent a left hip replacement without complication. He had a spinal anesthetic. Postoperatively he was started on aspirin for DVT prophylaxis and transferred to the general orthopedic floors. His hospital course was uneventful. On postop day #1, his vital signs were stable and his pain was well controlled. He was able to participate well with physical therapy doing ambulation and range of motion exercises. He was then discharged home. He will follow-up with orthopedics in 2 weeks. PG Care Time/CCT Total # of Minutes Spent Total Time Spent with Patient: Total time spent is greater than 50% in coordination of care (as documented) at patient's floor/unit and/or counseling patient: Discharge Plan Discharge Items Patient Disposition: Home - Home Health Services Reason For Visit: DJD Left Hip Discharge Diagnosis: Left hip replacement Activity: Per Instructions section Non-emergency contact: Surgeon Call non-emergency contact if: your wound has increased redness and your wound has increased drainage Follow-up/Referrals: Samuel Burkett MD [Primary Care Provider] - Diet: Regular Addtl Attending Provider Instructions: Activity and Therapy Recommendations: * If you are using [facility] then therapy will be provided at your home until they feel you have accomplished all of your goals. * If you are using [facility] then Physical Therapy will be provided until they feel you are ready to start Outpatient Physical Therapy. * If you are not using home therapy then Outpatient Physical Therapy should start about 3-5 days from your day of surgery. Therapy will last about 6-10 weeks * You were shown a series of exercises in the hospital. Do these exercises three times each day including the exercises you were shown in physical therapy. * Get up and walk several times each day.~ For the first four weeks, try not to stand or walk for more than one hour at a time. If you do stand or walk for more than one hour, you will not hurt anything, but your leg will likely swell.~~ * As you feel comfortable, you may change from the walker or crutches to a cane and~then to independent walking. Medications: * Narcotic You will likely be sent home from the hospital with a prescription for the narcotic pain medication that worked best throughout your stay. * Aspirin Most patients will be required to take Aspirin 81mg twice a day for 6 weeks after surgery. This is obtained [id number] and a prescription is not necessary. * Other medications may be prescribed for specific circumstances. If you have any questions, please call the office at . * Resume previous home medications unless otherwise instructed TEDs/Elastic Stockings: The white elastic stockings help limit swelling and prevent blood clots from forming in your legs. The more you wear them, the more they work. Wear them for six weeks. Dressing Care: Leave the Silverlon dressing in place for 7 days. After 7 days you may remove the dressing. If the incision is not draining then you may leave the tom open to air. If there is a little bit of drainage or if the tom are getting stuck on your clothing then cover the incision with a dry dressing. The tom will be removed at your 2 week follow-up appointment. Showering: You may shower with the Silverlon dressing in place. Do not let the shower spray hit the dressing directly. Pat the Silverlon dressing dry. If the dressing becomes wet underneath, then simply remove the dressing. Keep the incision dry until you are 7 days out from the day of surgery. After 7 days you may remove the Silverlon dressing and shower with the tom exposed. Let soapy water run over the tom and pat them dry. Do not scrub or soak the incision. Things To Watch For: * Drainage from the incision site that occurs more than one week after your surgery. * Increased redness at the incision site. * Fever above 102 degrees Fahrenheit. * Unusual chest pain or shortness of breath. * Call [facility] at with any of the above problems Follow-Up Visit: Follow-up with Dr. Jose's PA (Cali Ledbetter) 2-3 weeks after your day of surgery. He will remove your tom and answer any questions. If you have any additional questions or concerns, Dr Jose is usually in the office at the same time and will be available An appointment was probably scheduled when you signed-up for surgery in the office. If you have any questions call Office Instructions: More detailed instructions as well as Frequently Asked Questions were provided in a folder by our office when you signed-up for surgery. Please review these instructions when you get home. If you have any further questions or concerns, please feel free to call the office at [phone] Pending Studies at Discharge: No Stand-Alone Forms: [facility], Smoking Cessation Medications and DC Order Prescriptions: New oxycodone-acetaminophen 5-325 mg tablet 1 tab PO Q6H PRN (Reason: pain) Qty: 30 RF: 0 aspirin 81 mg Tablet,Delayed Release (Dr/Ec) 81 mg PO BID 42 Days Qty: 0 RF: 0 Continued cholecalciferol (vitamin D3) [Vitamin D3] 25 mcg (1,000 unit) Tablet 1,000 unit PO QAM RF: 0 meloxicam 15 mg Tablet 7.5 - 15 mg PO QAM PRN (Reason: Pain) RF: 0 Discharge Orders: Discharge Order (Routine); Ordered 02/07/22 Ordered By: Cali Jose Admission Data Admit Date/Time: 02/06/22 10:56 Attending Provider: Cali Jose Admit Provider: Cali Jose Primary Care Provider: Samuel Burkett
[2022-02-07] MEDS ORDERED: dexAMETHasone 4 MG TAB PO SCH (08:00)
[2022-02-07] MEDS: oxyCODONE HCL IR 5 MG TAB (IMMEDIATE RELEASE) PO PRN (08:15)
[2022-02-07] MEDS: ASPIRIN 81 MG ECTAB PO SCH (08:15)
[2022-02-07] MEDS: DOCUSATE SODIUM 100 MG CAP PO SCH (08:16)
[2022-02-07] MEDS ORDERED: MULTIVITAMIN TAB PO SCH (09:00)
== END 2022-02-07 12:01 | disposition home health service (06) ==
LOC: ASU 06:49 → 3E 06:49

== ENCOUNTER 2025-07-23 10:43 | Observation (INO) ==
--- NOTE | 2025-06-14 09:41 | PAT Medication Instructions ---
Medication Instructions Date of Service June 14, 2025 Home Medications acetaminophen 500 mg tablet (Tylenol Extra Strength) 1,000 mg PO Q6H PRN Pain gabapentin 300 mg capsule 300 mg PO BID meloxicam 15 mg tablet 15 mg PO QAM ASK your surgeon for instructions meloxicam 15 mg tablet 15 mg PO QAM Take morning of surgery With a small sip of water, OTHERWISE NOTHING TO EAT OR DRINK AFTER MIDNIGHT: acetaminophen 500 mg tablet (Tylenol Extra Strength) 1,000 mg PO Q6H PRN Pain (if needed) gabapentin 300 mg capsule 300 mg PO BID Take evening before surgery acetaminophen 500 mg tablet (Tylenol Extra Strength) 1,000 mg PO Q6H PRN Pain (if needed) gabapentin 300 mg capsule 300 mg PO BID Other Notes If you have any questions please call us at [phone] or [phone] or [phone] or [phone]
--- NOTE | 2025-06-26 11:33 | Anesthesiology Consultation ---
Date of Service June 26, 2025 Assessment & Plan (1) Encounter for pre-operative examination: Chart Review Chart Review: Acceptable Risk for Surgery and Patient seen in Pre Admission Testing - Patient is not an OPJ candidate per surgeon's office (currently booked as 23 hour obs) Per PAT appt on 06/26/25, no recent illness/disease exposures, illness related symptoms, or recent illness/disease positive tests. Will leave to surgeon's discretion if preop Covid testing needed Right Elbow Common Extensor Tendon Repair 07/25/24= Done under GA with LMA #5. Atraumatic x 1 Left Ant VINAY 02/06/22= Done under SAB at L3-4 with two attempts Teaching & Discussion Pre-Anesthesia Teaching/Discussion Notes: Instructed NPO after midnight before surgery,except medications with 15 cc of water. Medication instructions provided according to the [facility] guidelines. History Surgery Operation Date: 07/23/25 07:00 Proposed Procedures p Right Anterior Total Hip Arthroplasty - Cali Jose, Height/Weight Height: 5 ft 7 in Weight: 87.7 kg Allergies Allergy/AdvReac Type Severity Reaction Status Date / Time fluticasone Allergy Severe Chest Pain Verified 05/31/25 10:40 [From Advair Diskus] salmeterol Allergy Severe Chest Pain Verified 05/31/25 10:40 [From Advair Diskus] Sulfa (Sulfonamide Allergy Mild RASH/PRURIT Verified 05/31/25 10:40 Antibiotics) IS Medications Home Medications Medication Instructions Recorded Confirmed Last Taken acetaminophen 500 mg tablet 1,000 mg PO Q6H PRN Pain 05/10/25 06/14/25 Unknown (Tylenol Extra Strength) gabapentin 300 mg capsule 300 mg PO BID 06/14/25 06/14/25 Unknown meloxicam 15 mg tablet 15 mg PO QAM 06/14/25 06/14/25 Unknown Past Medical History Medical History Asthma No limitations/breathing issues - no inhalers currently Chronic back pain Eosinophilic asthma per medical record, pt unaware/denies History of bradycardia hx, asymptomatic-no cardiology History of bronchitis JUL 2017 STARTED HAVING RESPIRATORY PROBLEMS...PFTs and labs were c/w moderate to severe obstruction. Also had eosinophilia. Elective bronch 01/2018. He had widespread mucous plugging and seemingly purulent material suctioned from both lungs; was hypoxic for a period following the bronchoscopy and admitted for observation overnight with IV steroids and bronchodilators. Also developed a petechial rash on his face and scalp directly following the procedure, which had resolved by discharge. Cultures from his bronchoscopy remained negative for any specific pathogen. At discharge, completed a slow prednisone taper for his suspected asthma. PT REPORTS SYMPTOMS HAVE RESOLVED OVERALL. Hx of gastroesophageal reflux (GERD) well controlled and stable Lumbar disc herniation L5-S1 impinging on the left S1 nerve Lumbar radiculopathy following with [facility] Lumbar stenosis Osteoarthritis Exercise / Class Metabolic Activity II 4-5 Yardwork/Stairs/Walk up hill (one flight of stairs - no chest pain or SOB ) Past Family History Family History Other No family history of adverse response to anesthesia Past Surgical History Surgical History H/O elbow surgery (07/2024) right elbow tendon surgery (07/2024) Dr. Pike History of bronchoscopy (2016) History of colonoscopy History of right inguinal hernia repair (10/25/18) History of tonsillectomy History of total left hip arthroplasty 2021 Hx of LASIK S/P arthroscopy of left shoulder S/P arthroscopy of right shoulder Past Anesthesia History No Hx of Anesthesia Complications and No Family Hx of Anesthesia Complications History of PONV No Hx of PONV and No Hx of Motion Sickness Social History Smoking Status: Never smoker Do You Dip or Chew Tobacco: No (quit 35 years ago; advised) Hx Alcohol Use: Yes Alcohol type: beer alcohol intake frequency: holidays/special occasions only Hx Substance Use: No substance use type: does not use Review of Systems Patient denies chest pain, shortness of breath, dyspnea on exertion, cough, wheezing, palpitations. No hx of seizures, stroke, [place], apnea/snoring. No hx of blood clots or blood transfusions Physical Exam Vital Signs VITALS BP 153/83 P 53 TEMP 97.9 SP02 95% RESP 16 Constitutional no acute distress ENMT Mouth: no TMJ clicking Thyromental Distance: > or= 3.5 Finger Breadths (3.5) Mallampati Class: I Neck + limited neck extension (minimal) and + facial hair (advised to trim/shave ) Respiratory normal respiratory effort; no respiratory distress Auscultation: lungs clear to auscultation bilaterally; no wheezes Cardiovascular Rate/Rhythm: regular rate and regular rhythm Heart Sounds: no murmur Vessels: no carotid bruit Musculoskeletal Spine: no pain with cervical ROM Extremities: extremities normal to inspection Psychiatric Orientation: alert Lab Results Anesthesia Preop Results Results Anesthesia Widget: WBC 6.97 K/ul (4.8-10.8) 06/26/25 Hgb 13.0 g/dL (14.0-18.0) L 06/26/25 Hct 38.0 % (42.0-52.0) L 06/26/25 Plt 232 K/uL (130-400) 06/26/25 Na 141 mmol/L (136-145) 06/26/25 K 4.0 mmol/L (3.5-5.1) 06/26/25 Cl 106 mmol/L (98-107) 06/26/25 CO2 29 mmol/L (21-32) 06/26/25 BUN 18 mg/dl (6-23) 06/26/25 Creat 0.80 mg/dl (0.6-1.4) 06/26/25 Glucose Level 90 mg/dl (70-99(Fasting)) 06/26/25 PT 10.2 Seconds (9.0-12.0) 06/26/25 PTT 26 Seconds (21-31) 06/26/25 INR 1.0 (0.9-1.1) 06/26/25 Blood Type O Positive 06/26/25 Antibody Screen NEGATIVE 06/26/25 Testing Electrocardiogram Date: 06/26/25 Findings: + SB @ (51bpm ) Inferior infarct (cited on or before Jun 28, 2020) When compared to EKG from February 22, 2024- no significant change was found per cardio Chest X-Ray Date: 06/26/25 Findings: + NAD Other Testing Lumbar Spine 04/24/25= Moderate size left paracentral disc extrusion with inferior subligamentous migration at L5-S1 which results in severe narrowing of the left lateral recess with posterior displacement of the left S1 nerve root. This could be correlated with left S1 radiculopathy. No additional disc herniations within the lumbar spine. No significant central canal stenosis. Moderate multilevel neural foraminal stenosis. No lumbar spine fractures.
[~2025-07-23 10:43] MED LIST changes: -ACETAMINOPHEN 500 MG TAB PO SCH; -GABAPENTIN 600 MG DOSE PO SCH; -Ketorolac (*for OR use only*) 30 MG, dexAMETHasone 4 MG, KETAMINE HCL (**OR use only) 1... INFIL SCH; -LR 500ML BOLUS, THEN 15ML/HR IV SCH; -LR 60ML/HR IV SCH; -TRANEXAMIC ACID 1,000 MG **IV Intra-op IV SCH; -TRANEXAMIC ACID 1,000 MG **IV Pre-op IV SCH; -ceFAZolin 2000MG 2,000 MG/15 ML SYR IV SCH
[2025-07-23] MEDS ORDERED: MIDAZOLAM HCL 1 MG/ML 2ML VIAL ONE (10:48)
[2025-07-23] MEDS ORDERED: PROPOFOL IV EMULSION 10 MG/ML 20 ML VIAL IV ONE ×2 (10:50→13:08)
[2025-07-23] MEDS: LR 60ML/HR IV SCH (11:19)
[2025-07-23] MEDS: GABAPENTIN 300 MG CAP PO SCH ×2 (11:22→20:07)
[2025-07-23] MEDS: ACETAMINOPHEN 500 MG TAB PO SCH ×2 (11:22→17:07)
[2025-07-23] MEDS: FAMOTIDINE 20 MG TAB PO SCH (11:22)
--- NOTE | 2025-07-23 11:23 | History & Physical Bridge Note ---
Date of Service July 23, 2025 History & Physical Bridge Note I have examined the patient, reviewed the History & Physical and in the interval since the performance of the History & Physical I have noted the following changes of clinical significance: no changes noted
[2025-07-23] MEDS: TRANEXAMIC ACID 1,000 MG **IV Pre-op IV SCH (12:03)
[2025-07-23] MEDS ORDERED: KETAMINE HCL 10MG/ML SYR ONE (12:35)
[2025-07-23] MEDS ORDERED: ePHEDrine sulfate 50 MG/5 ML SYR ONE (12:44)
[2025-07-23] MEDS ORDERED: ONDANSETRON INJ 2 MG/ML 2 ML VIAL ONE (12:46)
[2025-07-23] MEDS: ROPIV 0.5% 246mg, Ketorolac 30mg, EPINEPHrine 0.5mg in NSS INFIL SCH (12:56)
[2025-07-23] MEDS: ORTHO JOINT ANESTHETIC ONE (12:56)
--- NOTE | 2025-07-23 13:34 | Operative Report ---
PG Post Operative Report Pre & Post Diagnosis Operation Date: 07/23/25 12:25 Pre-Op Diagnosis: Right Hip Osteoarthritis Post-Op Diagnosis: Right Hip Osteoarthritis I identified the patient and participated in the time-out.: Yes Procedure Operation Date: 07/23/25 12:25 Actual Procedures p Right Anterior Total Hip Arthroplasty, Uncemented(Right) - Cali Jose DO Surgeon Cali Jose DO Battery Hand Debbie Leon PA-C Estimated Blood Loss 300 Findings Consistent with Post-Op Diagnosis Specimens Right femoral head Description of Procedure Implants used I used a ZimmerBiomet total hip arthroplasty system with a size 4 high offset Z1 stem, a 54 mm G7 cup, an E1 polyethylene liner, a 40 mm ceramic head with a 0 neck. Marco arrived at the hospital for the above procedure. He was seen in the preoperative holding area and the operative extremity was identified and signed. He was given a spinal anesthetic, a preoperative antibiotic, and TXA. He was then taken back to the operating room and laid on the table in the supine position. He was given basic sedation. The operative leg was secured to a Puristst leg positioner. The hip was then prepped and draped in sterile fashion. A timeout was done and the patient and the operative extremity was properly identified. An anterior approach was used. Dissection was taken down through the fascia and the tensor muscle belly was retracted laterally and the rectus was retracted medially. The circumflex vessels were identified and ligated. The capsule was then incised and tagged for later repair. The femoral neck was then cut and the femoral head was removed. The acetabulum was exposed. Time was spent doing a complete circumferential labral release. Sequential reaming of the acetabulum up to a size 53 reamer was done. Final reamings were done under fluoroscopy to ensure appropriate version. A Biomet 54 mm G7 cup was then impacted into place. The E1 polyethylene liner was then snapped into place. Surrounding soft tissues were then injected with 100 cc of an orthopedic pain control cocktail. The proximal femur was then exposed. Sequential broaching up to a size 4 broach was done. Off that broach a size 40 head with a 0 neck was trialed. The hip was reduced and fluoroscopic images showed anatomic alignment of the implants in acceptable length. The broach was removed. The final size 4 high offset Z1 stem was then impacted into place. A ceramic 40 mm head with a 0 neck was then impacted onto the stem and the hip was reduced. Final fluoroscopic images showed anatomic alignment of the hip. The capsule was then closed with #1 Vicryl suture. An Irrisept lavage was then done for 3 minutes. The joint was then irrigated with normal saline solution. The fascia was closed with #1 PDS suture. Skin was closed with 2-0 Vicryl, White Zipline, and a Silverlon dressing. He was then transferred to a hospital bed and taken to the post anesthesia care unit in stable condition. He tolerated the procedure well. Debbie Leon PA-C, was present for the entire procedure. He was critical for patient positioning, prepping, draping, retraction exposure, wound closure and application of sterile dressing. I attest to the content of the Intraoperative Record and any orders documented therein. Any exceptions are noted below.
--- NOTE | 2025-07-23 13:44 | Fluoroscopy Report ---
INTRAOPERATIVE RADIOGRAPH CLINICAL HISTORY: Right hip arthroplasty placement. Fluoro time: 12 seconds Ka,r: 1.54 mGy FINDINGS: A single spot fluoroscopic image of the right hip is compared to x-rays dated 06/26/2025. A bipolar right hip arthroplasty is in near anatomic alignment. No evidence of acute fracture is seen on this single fluoroscopic image. IMPRESSION: Intraoperative image from a right hip arthroplasty procedure as above. Electronically signed by: Berhane Salomon M.D. 07/23/2025 1:43 PM
--- NOTE | 2025-07-23 14:41 | XRay Report ---
XR hip 1V RT w pelvis CLINICAL HISTORY: Postoperative evaluation. COMPARISON: Right hip radiographs June 26, 2025. FINDINGS: Alignment of the total right hip arthroplasty is anatomic. There is no periprosthetic frac ture or unexpected radiopaque foreign body. Left hip arthroplasty is intact. IMPRESSION: Expected findings following total right hip arthroplasty. ACT 112: Negative or not required by law. Electronically signed by: Jason Jett M.D. 07/23/2025 2:39 PM
--- NOTE | 2025-07-23 14:59 | Anesthesiology Progress Note ---
Date of Service July 23, 2025 Anesthesia Post Procedure Vital Signs Vital Signs: Temp Pulse Resp BP Pulse Ox O2 Del Method O2 Flow Rate 07/23/25 14:50 74 14 128/70 92 Room Air 07/23/25 14:40 74 20 129/67 92 Room Air 07/23/25 14:30 36.5 C 74 16 134/69 93 Room Air 07/23/25 14:20 71 16 130/66 98 Oxymask 2 07/23/25 14:10 79 16 116/67 97 Oxymask 4 07/23/25 14:00 36.3 C L 79 18 126/69 98 Oxymask 6 07/23/25 11:06 36.9 C 65 20 169/87 H 97 Room Air Pain Intensity Bilateral Leg: Pain Intensity: 4 Transfer of Care Handoff Completed per policy Notes Mental Status: alert / awake / arousable Patient Amnestic to Procedure: Yes Nausea / Vomiting: adequately controlled Pain: adequately controlled Airway Patency, RR, SpO2: stable & adequate BP & HR: stable & adequate Hydration State: stable & adequate Neuraxial Anesthesia: was administered and sensory block is resolving Anesthetic Complications: no major complications apparent and Pt Satisfied with anesthetic care
[2025-07-23] MEDS ORDERED: METOCLOPRAMIDE HCL INJ 5 MG/ML 2 ML VIAL IV PRN (15:38)
[2025-07-23] MEDS ORDERED: MAGNESIUM HYDROXIDE SUSP 30 ML UDC PO PRN (15:38)
[2025-07-23] MEDS ORDERED: ONDANSETRON INJ 2 MG/ML 2 ML VIAL IV PRN (15:38)
[2025-07-23] MEDS ORDERED: HYDROmorphone INJ 0.5 MG/0.5 ML SYR IV PRN (15:38)
[2025-07-23] MEDS ORDERED: NALOXONE HCL 0.4 MG/1 ML VIAL/CARP IV PRN (15:38)
[2025-07-23] MEDS: dexAMETHasone**PF** 10 MG/ML VIAL IV SCH (15:46)
[2025-07-23] MEDS: SODIUM CHLORIDE 0.9% 1,000 ML IV SCH (16:47)
[2025-07-23] MEDS: KETOROLAC TROMETHAMINE 15 MG/ML VIAL IV SCH (17:06)
[2025-07-23 18:34] VITALS: RESP 16
[2025-07-23] MEDS: DOCUSATE SODIUM 100 MG CAP PO SCH (20:07)
[2025-07-23] MEDS: ASPIRIN 81 MG ECTAB PO SCH (20:07)
[2025-07-23] MEDS: SENNA 8.6 MG TAB PO SCH (20:07)
[2025-07-24 07:32] VITALS: BP 145/75; PULSE 58; TEMP 97.9; O2SAT 94
[2025-07-24] MEDS: MULTIVITAMIN TAB PO SCH (07:42)
--- NOTE | 2025-07-24 08:55 | Orthopedic Progress Note ---
Date of Service July 24, 2025 Assessment & Plan (1) Status post right hip replacement: * Continue Current Treatment * Disposition: home * Daily treatment: Physical Therapy/ Occupational Therapy per protocol * Weight bearing status: WBAT, no precautions * Continue to monitor for ABLA * Pain control * DVT prophylaxis, ASA * Office/hospital f/u 2 weeks for progress check and staple/suture removal * Plan for discharge today pending PT/OT clearance Subjective . Active Problems: S/p right VINAY POD 1 64 y/o male s/p right VINAY. Doing well overall, pain managed and improved function. Denies fever/chills, chest pain/SOB, nausea/vomiting. Otherwise no com plaints. Review of Systems All systems reviewed & are unremarkable except as noted in HPI & below. Physical Exam . * General: Alert and oriented, no acute distress * Constitutional: well-developed, well-nourished. * Respiratory: Normal respiratory effort, no distress * Gastrointestinal: No tenderness to palpation, no rigidity or guarding. * Skin: No rash or lesion. * Neurologic: Grossly normal * Musculoskeletal: Right hip surgical dressing CDI, not removed for exam. Otherwise no obvious deformity or overlying skin changes. Diffuse TTP proximal thigh and hip region. Otherwise no specific tenderness of distal thigh, lower leg, foot/ankle. AROM hip flexion intact. AROM foot/ankle intact. Sensation intact plantar/dorsal foot. Brisk capillary refill. Results & Data Results & Data Laboratory Results . Diagnostic Findings . Hip X-Ray 07/23/25 00:00 INTRAOPERATIVE RADIOGRAPH CLINICAL HISTORY: Right hip arthroplasty placement. Fluoro time: 12 seconds Ka,r: 1.54 mGy FINDINGS: A single spot fluoroscopic image of the right hip is compared to x- rays dated 06/26/2025. A bipolar right hip arthroplasty is in near anatomic alignment. No evidence of acute fracture is seen on this single fluoroscopic image. IMPRESSION: Intraoperative image from a right hip arthroplasty procedure as above. Electronically signed by: Berhane Salomon M.D. 07/23/2025 1:43 PM Hip/Pelvis X-Ray 07/23/25 13:08 XR hip 1V RT w pelvis CLINICAL HISTORY: Postoperative evaluation. COMPARISON: Right hip radiographs June 26, 2025. FINDINGS: Alignment of the total right hip arthroplasty is anatomic. There is no periprosthetic fracture or unexpected radiopaque foreign body. Left hip arthroplasty is intact. IMPRESSION: Expected findings following total right hip arthroplasty. ACT 112: Negative or not required by law. Electronically signed by: Jason Jett M.D. 07/23/2025 2:39 PM PG Care Time/CCT Total # of Minutes Spent Total Time Spent with Patient: Total time spent is greater than 50% in coordination of care (as documented) at patient's floor/unit and/or counseling patient: Coding Level of Care Code 42171 Post Operative Follow-Up Diagnoses Status post right hip replacement Z96.641
== END 2025-07-24 11:45 | disposition home or self-care (01) ==
LOC: ASU 10:43 → 3E 10:43